=== PATIENT | female | born 1995 | race Two or more races ===

== ENCOUNTER 2023-01-08 10:02 | Inpatient (IN) | payer MEDICAID ==
[~2023-01-08] VITALS: Ht 170.2 cm; Wt 64.8 kg
[2023-01-08] MEDS ORDERED: diphenhdrAMINE HCL 50 MG/1 ML VL IV ONE ×2 (10:30→14:00)
[2023-01-08] MEDS ORDERED: SODIUM CHLORIDE 0.9% 2,000 ML IV ONE (10:30)
[2023-01-08] MEDS ORDERED: LORazepam 2MG/ML-1ML VIAL IV ONE (10:30)
[2023-01-08 11:52] LABS: Albumin 3.7 g/dL (3.4-5.0); Calcium 9.1 mg/dL (8.5-10.1); Magnesium 1.9 mg/dL (1.6-2.6); Potassium 3.5 mmol/L (3.5-5.1)
[2023-01-08 11:55] LABS: Lactic Acid w/Reflex 2.2 mmol/L (0.4-2.0)
[2023-01-08 11:57] LABS: BUN/Creatinine Ratio 14.1 (10.0-20.0); Bilirubin, Total 0.5 mg/dL (0.2-1.0); Total Protein 7.6 g/dL (6.4-8.2)
[2023-01-08] MEDS ORDERED: HYDROmorphone HCL 2 MG/ML VL/or syr IV ONE (12:00)
[2023-01-08] MEDS ORDERED: METOCLOPRAMIDE HCL 5MG/ml INJ 2ml VIAL IV ONE (12:00)
[2023-01-08 12:03] LABS: INR 0.97 (0.9-1.15); Partial Thromboplastin Time 24.5 sec (24.6-33.4)
[2023-01-08 12:04] LABS: Basophils # (auto) 0 10 ^3/uL (0-0.2); Basophils % (auto) 0.4 % (0.0-2.0); Eosinophils # (auto) 0 10 ^3/uL (0-0.8); Eosinophils % (auto) 0.1 % (0.0-7.0); Hematocrit 35.2 % (36.0-46.0); Hemoglobin 12.2 g/dL (12.2-16.2); Lymphocytes # (auto) 1.8 10 ^3/uL (0.4-5.4); Lymphocytes % (auto) 27.7 % (10.0-50.0); Mean Corpuscular Hemoglobin 27.5 pg (28.0-32.0); Mean Corpuscular Hgb Conc. 34.7 g/dL (32.0-36.0); Mean Corpuscular Volume 79.4 fL (80.0-100.0); Monocytes # (auto) 0.4 10 ^3/uL (0-1.3); Monocytes % (auto) 6.3 % (0.0-12.0); Neutrophils # (auto) 4.4 10 ^3/uL (1.6-8.6); Neutrophils % (auto) 65.5 % (37.0-80.0); Nucleated Red Blood Cells % 0.1 %; Red Blood Cells 4.44 10^6/uL (4.0-5.20); Red Cell Distribution Width 13.7 % (11.8-14.3); White Blood Cell 6.6 10^3/uL (4.4-10.8)
[2023-01-08] MEDS ORDERED: PROMETHAZINE HCL 25 MG/ML 1ML IV ONE (14:00)
[2023-01-08] MEDS ORDERED: InsuLIN REG 1unit/0.01ml Soln (100units/ml) IV ONE (14:00)
[2023-01-08] MEDS ORDERED: DEXTROSE (50%) 50ML SYRG IV PRN (14:15)
[2023-01-08] MEDS: SODIUM CHLORIDE 0.9% 1,000 ML IV SCH ×2 (14:15→18:38)
[2023-01-08] MEDS ORDERED: OXYC-998 PO (14:27)
[2023-01-08] MEDS ORDERED: METH-1181 PO (14:27)
[2023-01-08] MEDS ORDERED: QUET200T45 PO (14:27)
[2023-01-08] MEDS ORDERED: ONDA-188 (14:27)
[2023-01-08] MEDS ORDERED: DULO1CAP5 PO (14:27)
[2023-01-08] MEDS ORDERED: INSU100I51 SC (14:27)
[2023-01-08] MEDS ORDERED: RIV15T PO (14:27)
[2023-01-08] MEDS ORDERED: CEFA10IN (14:27)
[2023-01-08] MEDS ORDERED: QUET100T47 PO (14:27)
[2023-01-08] MEDS ORDERED: HYDR-3682 PO (14:27)
[2023-01-08] MEDS ORDERED: INSU1INJ19 SC (14:27)
[2023-01-08] MEDS ORDERED: PANT40T PO (14:27)
[2023-01-08] MEDS ORDERED: GABA-1250 PO (14:27)
[2023-01-08 16:23] LABS: Lactic Acid w/Reflex 2.7 mmol/L (0.4-2.0)
[2023-01-08] MEDS: METOCLOPRAMIDE HCL 5MG/ml INJ 2ml VIAL IV PRN (16:34)
[2023-01-08] MEDS: diphenhdrAMINE HCL 50 MG/1 ML VL IV PRN ×2 (16:56→22:48)
[2023-01-08] MEDS: HYDROmorphone HCL 2 MG/ML VL/or syr IV PRN ×2 (16:57→20:57)
[2023-01-08] MEDS: ACCU-CHEK COMFORT CURVE STRIP VI SCH ×2 (17:00→22:35)
[2023-01-08] MEDS: InsuLIN REG 1unit/0.01ml Soln (100units/ml) SC SCH ×2 (18:14→22:36)
[2023-01-08] MEDS ORDERED: SODIUM CHLORIDE 0.9% 1,000 ML IV ONE (18:15)
[2023-01-08] MEDS: RIVAROXABAN 15 MG TAB PO SCH (22:40)
[2023-01-08] MEDS: DULoxetine HCL 30 MG CAP PO SCH (22:40)
[2023-01-08] MEDS: GABAPENTIN 300 MG CAP PO SCH (22:40)
[2023-01-08 23:55] LABS: Urine Bacteria FEW /hpf (None Seen); Urine Blood Negative /uL (Negative); Urine Mucus FEW (None Seen); Urine Specific Gravity 1.032 (1.001-1.035); Urine WBC 3 /hpf (0 - 5)
[2023-01-09] MEDS: HYDROmorphone HCL 2 MG/ML VL/or syr IV PRN ×5 (01:18→19:45)
[2023-01-09] MEDS: diphenhdrAMINE HCL 50 MG/1 ML VL IV PRN ×4 (02:45→22:47)
[2023-01-09] MEDS: GABAPENTIN 300 MG CAP PO SCH ×3 (06:00→22:03)
[2023-01-09] MEDS: ACCU-CHEK COMFORT CURVE STRIP VI SCH ×4 (06:35→22:03)
[2023-01-09] MEDS: SODIUM CHLORIDE 0.9% 1,000 ML IV SCH ×3 (06:35→23:35)
[2023-01-09] MEDS: InsuLIN REG 1unit/0.01ml Soln (100units/ml) SC SCH ×4 (06:36→22:00)
[2023-01-09] MEDS: METOCLOPRAMIDE HCL 5MG/ml INJ 2ml VIAL IV PRN (07:34)
[2023-01-09 07:43] LABS: Basophils # (auto) 0 10 ^3/uL (0-0.2); Basophils % (auto) 0.4 % (0.0-2.0); Eosinophils # (auto) 0 10 ^3/uL (0-0.8); Eosinophils % (auto) 0.6 % (0.0-7.0); Hematocrit 33.2 % (36.0-46.0); Hemoglobin 11.3 g/dL (12.2-16.2); Lymphocytes # (auto) 2.6 10 ^3/uL (0.4-5.4); Lymphocytes % (auto) 33.2 % (10.0-50.0); Mean Corpuscular Hemoglobin 27.5 pg (28.0-32.0); Mean Corpuscular Hgb Conc. 33.9 g/dL (32.0-36.0); Mean Corpuscular Volume 81.3 fL (80.0-100.0); Monocytes # (auto) 0.6 10 ^3/uL (0-1.3); Monocytes % (auto) 7.8 % (0.0-12.0); Neutrophils # (auto) 4.6 10 ^3/uL (1.6-8.6); Nucleated Red Blood Cells % 0.2 %; Red Blood Cells 4.09 10^6/uL (4.0-5.20); Red Cell Distribution Width 13.6 % (11.8-14.3); White Blood Cell 7.9 10^3/uL (4.4-10.8)
[2023-01-09 07:58] LABS: Calcium 8.4 mg/dL (8.5-10.1); Potassium 3.4 mmol/L (3.5-5.1)
[2023-01-09 08:03] LABS: Albumin 3.2 g/dL (3.4-5.0); BUN/Creatinine Ratio 12.1 (10.0-20.0); Bilirubin, Total 0.4 mg/dL (0.2-1.0); Total Protein 6.7 g/dL (6.4-8.2)
[2023-01-09] MEDS: QUEtiapine FUMARATE 100 MG TAB PO SCH (10:43)
[2023-01-09] MEDS: DULoxetine HCL 30 MG CAP PO SCH ×2 (10:43→22:02)
[2023-01-09] MEDS: RIVAROXABAN 15 MG TAB PO SCH ×2 (10:43→22:03)
[2023-01-10 04:11] VITALS: BP 166/103
[2023-01-10] MEDS: HYDROmorphone HCL 2 MG/ML VL/or syr IV PRN ×2 (04:28→09:36)
[2023-01-10] MEDS: METOCLOPRAMIDE HCL 5MG/ml INJ 2ml VIAL IV PRN ×3 (04:34→19:59)
[2023-01-10] MEDS ORDERED: INSU100I4 SC (04:40)
[2023-01-10] MEDS ORDERED: INSLANTI SC (04:40)
[2023-01-10] MEDS: SODIUM CHLORIDE 0.9% 1,000 ML IV SCH ×2 (05:02→12:23)
[2023-01-10] MEDS: diphenhdrAMINE HCL 50 MG/1 ML VL IV PRN (05:34)
[2023-01-10] MEDS: GABAPENTIN 300 MG CAP PO SCH ×3 (05:35→21:46)
[2023-01-10] MEDS: ACCU-CHEK COMFORT CURVE STRIP VI SCH ×4 (06:05→21:59)
[2023-01-10] MEDS: InsuLIN REG 1unit/0.01ml Soln (100units/ml) SC SCH ×4 (06:08→22:02)
[2023-01-10 09:00] VITALS: BP 108/6
[2023-01-10] MEDS: RIVAROXABAN 15 MG TAB PO SCH (09:19)
[2023-01-10] MEDS: DULoxetine HCL 30 MG CAP PO SCH ×2 (09:22→21:46)
[2023-01-10] MEDS: QUEtiapine FUMARATE 100 MG TAB PO SCH (09:22)
[2023-01-10] MEDS ORDERED: ACETAMINOPHEN 500 MG TAB PO PRN (12:45)
[2023-01-10 13:00] VITALS: BP 103/68
[2023-01-10 14:29] LABS: Hepatitis C Antibody Negative (Negative)
[2023-01-10 17:00] VITALS: BP 122/71
[2023-01-10] MEDS: RIVAROXABAN 20 MG TAB PO SCH (18:00)
[2023-01-10 21:40] VITALS: BP 127/58
[2023-01-10] MEDS ORDERED: POTASSIUM EFFERVESENT TAB 25 MEQ GT ONE (22:00)
[2023-01-10] MEDS ORDERED: POTASSIUM EFFERVESENT TAB 25 MEQ PO ONE (23:00)
[2023-01-10] MEDS ORDERED: diphenhdrAMINE HCL 25 MG CAP PO ONE (23:00)
[2023-01-11] MEDS: SODIUM CHLORIDE 0.9% 1,000 ML IV SCH ×3 (00:35→18:08)
[2023-01-11 04:50] VITALS: BP 123/76
[2023-01-11] MEDS: GABAPENTIN 300 MG CAP PO SCH ×3 (05:18→22:34)
[2023-01-11] MEDS: ACCU-CHEK COMFORT CURVE STRIP VI SCH ×4 (06:23→21:50)
[2023-01-11] MEDS: InsuLIN REG 1unit/0.01ml Soln (100units/ml) SC SCH ×4 (06:25→22:02)
[2023-01-11] MEDS: METOCLOPRAMIDE HCL 5MG/ml INJ 2ml VIAL IV PRN ×2 (08:22→21:47)
[2023-01-11 08:49] LABS: Basophils # (auto) 0 10 ^3/uL (0-0.2); Basophils % (auto) 0.4 % (0.0-2.0); Eosinophils # (auto) 0 10 ^3/uL (0-0.8); Eosinophils % (auto) 0.4 % (0.0-7.0); Hematocrit 33.4 % (36.0-46.0); Hemoglobin 11.3 g/dL (12.2-16.2); Lymphocytes # (auto) 1.8 10 ^3/uL (0.4-5.4); Lymphocytes % (auto) 29.3 % (10.0-50.0); Mean Corpuscular Hemoglobin 27.1 pg (28.0-32.0); Mean Corpuscular Hgb Conc. 33.8 g/dL (32.0-36.0); Mean Corpuscular Volume 80.1 fL (80.0-100.0); Monocytes # (auto) 0.5 10 ^3/uL (0-1.3); Monocytes % (auto) 8.8 % (0.0-12.0); Neutrophils # (auto) 3.7 10 ^3/uL (1.6-8.6); Neutrophils % (auto) 61.1 % (37.0-80.0); Nucleated Red Blood Cells % 0.1 %; Red Blood Cells 4.17 10^6/uL (4.0-5.20); Red Cell Distribution Width 13.9 % (11.8-14.3)
[2023-01-11 09:00] VITALS: BP 118/75
[2023-01-11 09:40] LABS: Potassium 3.8 mmol/L (3.5-5.1)
[2023-01-11 09:44] LABS: BUN/Creatinine Ratio 10.7 (10.0-20.0)
[2023-01-11] MEDS: QUEtiapine FUMARATE 100 MG TAB PO SCH ×2 (10:00→13:11)
[2023-01-11] MEDS: DULoxetine HCL 30 MG CAP PO SCH ×2 (10:00→13:11)
[2023-01-11 13:00] VITALS: BP 121/74
[2023-01-11] MEDS: traMADol HCL 50 MG TAB PO PRN (13:08)
[2023-01-11] MEDS: diphenhdrAMINE HCL 50 MG/1 ML VL IV PRN ×3 (13:12→22:03)
[2023-01-11 17:00] VITALS: BP 100/60
[2023-01-11] MEDS: RIVAROXABAN 20 MG TAB PO SCH (18:00)
[2023-01-11 22:00] VITALS: BP 152/98
[2023-01-11] MEDS ORDERED: DULoxetine HCL 30 MG CAP PO ONE (22:15)
[2023-01-12] MEDS: SODIUM CHLORIDE 0.9% 1,000 ML IV SCH ×2 (01:23→09:12)
[2023-01-12] MEDS: traMADol HCL 50 MG TAB PO PRN ×2 (01:23→09:12)
[2023-01-12] MEDS: diphenhdrAMINE HCL 50 MG/1 ML VL IV PRN ×2 (02:07→06:22)
[2023-01-12 05:00] VITALS: BP 144/100
[2023-01-12] MEDS ORDERED: LORazepam 0.5 MG TAB PO ONE (05:45)
[2023-01-12] MEDS: GABAPENTIN 300 MG CAP PO SCH (06:00)
[2023-01-12] MEDS: ACCU-CHEK COMFORT CURVE STRIP VI SCH (06:06)
[2023-01-12] MEDS: InsuLIN REG 1unit/0.01ml Soln (100units/ml) SC SCH (06:18)
[2023-01-12] MEDS: METOCLOPRAMIDE HCL 5MG/ml INJ 2ml VIAL IV PRN (06:22)
[2023-01-12 06:41] LABS: Basophils # (auto) 0 10 ^3/uL (0-0.2); Basophils % (auto) 0.1 % (0.0-2.0); Eosinophils # (auto) 0 10 ^3/uL (0-0.8); Hematocrit 34.6 % (36.0-46.0); Hemoglobin 11.6 g/dL (12.2-16.2); Lymphocytes # (auto) 1.2 10 ^3/uL (0.4-5.4); Lymphocytes % (auto) 10.2 % (10.0-50.0); Mean Corpuscular Hemoglobin 27.2 pg (28.0-32.0); Mean Corpuscular Hgb Conc. 33.7 g/dL (32.0-36.0); Mean Corpuscular Volume 80.8 fL (80.0-100.0); Monocytes # (auto) 0.4 10 ^3/uL (0-1.3); Monocytes % (auto) 3.7 % (0.0-12.0); Neutrophils # (auto) 9.8 10 ^3/uL (1.6-8.6); Red Blood Cells 4.28 10^6/uL (4.0-5.20); Red Cell Distribution Width 13.7 % (11.8-14.3); White Blood Cell 11.4 10^3/uL (4.4-10.8)
[2023-01-12 06:46] LABS: BUN/Creatinine Ratio 9.8 (10.0-20.0); Calcium 8.9 mg/dL (8.5-10.1); Potassium 3.4 mmol/L (3.5-5.1)
[2023-01-12 09:00] VITALS: BP 141/62
[2023-01-12] MEDS: QUEtiapine FUMARATE 100 MG TAB PO SCH (09:13)
[2023-01-12] MEDS ORDERED: ONDA-188 PO (10:43)
== END 2023-01-12 14:01 | disposition home or self-care (01) | DRG 420 ==
LOC: EDBD 10:02 → ER 10:02 → OVERFLOW 14:18 → WEST WING 01-10 04:20
PROVIDERS: ADMIT Nurse Practitioner Family; ATTEND Internal Medicine Pulmonary Disease
DX: E10.10 Type 1 diabetes mellitus with ketoacidosis without coma (principal); E10.43 Type 1 diabetes mellitus with diabetic autonomic (poly)neuropathy; K31.84 Gastroparesis; Z91.199 Patient's noncompliance with other medical treatment and regimen due to unspecified reason; Z91.018 Allergy to other foods; Z95.0 Presence of cardiac pacemaker; Z83.3 Family history of diabetes mellitus
CPT/HCPCS: 36415; 36600; 74176; 80048; 80053; 81001; 82010; 82805; 82962; 83036; 83605; 83690; 83735; 84443; 84484; 84702; 85025; 85610; 85730; 86803; 87040; 87077; 87186; 87340; 96374; 96375; G0378; J1815

== ENCOUNTER 2023-02-28 19:30 | Inpatient (IN) | payer MEDICAID ==
[~2023-02-28] VITALS: Ht 170.2 cm; Wt 63.0 kg
[~2023-02-28 19:30] MED LIST: CEFA10IN; DULO1CAP5 PO; GABA-1250 PO; HYDR-3682 PO; INSLANTI SC; INSU100I4 SC; INSU100I51 SC; INSU1INJ19 SC; METH-1181 PO; ONDA-188 PO; OXYC-998 PO; PANT40T PO; QUET100T47 PO; QUET200T45 PO; RIV15T PO
[2023-02-28 20:07] LABS: Urine Bacteria NONE SEEN /hpf (None Seen); Urine Blood Negative /uL (Negative); Urine Specific Gravity 1.031 (1.001-1.035); Urine WBC 1 /hpf (0 - 5)
[2023-02-28] MEDS ORDERED: ONDANSETRON HCL 4 MG/2 ML VIAL IV ONE (20:15)
[2023-02-28] MEDS ORDERED: SODIUM CHLORIDE 0.9% 2,000 ML IV ONE ×2 (20:15→21:45)
[2023-02-28 20:18] LABS: Basophils # (auto) 0 10 ^3/uL (0-0.2); Basophils % (auto) 0.1 % (0.0-2.0); Eosinophils # (auto) 0 10 ^3/uL (0-0.8); Hematocrit 38.8 % (36.0-46.0); Hemoglobin 12.7 g/dL (12.2-16.2); Lymphocytes # (auto) 0.8 10 ^3/uL (0.4-5.4); Lymphocytes % (auto) 5.6 % (10.0-50.0); Mean Corpuscular Hemoglobin 26.7 pg (28.0-32.0); Mean Corpuscular Hgb Conc. 32.7 g/dL (32.0-36.0); Mean Corpuscular Volume 81.5 fL (80.0-100.0); Monocytes # (auto) 0.4 10 ^3/uL (0-1.3); Monocytes % (auto) 2.6 % (0.0-12.0); Neutrophils # (auto) 13.3 10 ^3/uL (1.6-8.6); Neutrophils % (auto) 91.7 % (37.0-80.0); Nucleated Red Blood Cells % 0.1 %; Red Blood Cells 4.75 10^6/uL (4.0-5.20); Red Cell Distribution Width 14.7 % (11.8-14.3); White Blood Cell 14.5 10^3/uL (4.4-10.8)
[2023-02-28 20:22] LABS: Albumin 4.1 g/dL (3.4-5.0); Calcium 9.5 mg/dL (8.5-10.1)
[2023-02-28 20:26] LABS: BUN/Creatinine Ratio 13.4 (10.0-20.0); Bilirubin, Total 0.5 mg/dL (0.2-1.0); Total Protein 8.4 g/dL (6.4-8.2)
[2023-02-28] MEDS ORDERED: diphenhdrAMINE HCL 50 MG/1 ML VL IV ONE (20:30)
[2023-02-28] MEDS ORDERED: InsuLIN REG 1unit/0.01ml Soln (100units/ml) IV ONE (20:30)
[2023-02-28 20:35] LABS: Lactic Acid w/Reflex 5.7 mmol/L (0.4-2.0)
[2023-02-28 20:36] LABS: Alcohol, Urine < 3.0 mg/dL (0-10); Amphetamine Screen, Urine NEGATIVE (NEGATIVE); Barbiturate Scree,Urine NEGATIVE (NEGATIVE); Benzodiazephine Screen, Urine NEGATIVE (NEGATIVE); Cannabinoid Screen, Urine POSITIVE (NEGATIVE); Cocaine Screen, Urine NEGATIVE (NEGATIVE)
[2023-02-28 20:44] LABS: Opiate Scree,Urine NEGATIVE (NEGATIVE); Phencyclidine Screen, Urine NEGATIVE (NEGATIVE)
[2023-02-28] MEDS ORDERED: levoFLOXacin 500MG 100 ML IV ONE (21:45)
[2023-02-28 22:40] LABS: INR 0.94 (0.9-1.15); Partial Thromboplastin Time 24.4 SEC (24.5-34.5)
[2023-03-01] MEDS ORDERED: ONDANSETRON HCL 4 MG/2 ML VIAL IV ONE (00:30)
[2023-03-01] MEDS ORDERED: VANCOMYCIN 1GM/250ML 250 ML IV ONE (00:30)
[2023-03-01] MEDS ORDERED: HYDROmorphone HCL 2 MG/ML VL/or syr IV ONE ×2 (00:30→10:00)
[2023-03-01] MEDS ORDERED: METOCLOPRAMIDE HCL 5MG/ml INJ 2ml VIAL IV ONE ×3 (03:45→06:45)
[2023-03-01 04:29] LABS: BUN/Creatinine Ratio 14.9 (10.0-20.0); Calcium 8.2 mg/dL (8.5-10.1)
[2023-03-01] MEDS ORDERED: NITROGLYCERIN 0.4 MG SL TAB SL PRN (05:45)
[2023-03-01] MEDS ORDERED: TEMAZEPAM 15 MG CAP PO PRN (05:45)
[2023-03-01] MEDS ORDERED: MORPHINE SULFATE INJ 2 MG/ml SYRG IV PRN (05:45)
[2023-03-01] MEDS ORDERED: DEXTROSE (50%) 50ML SYRG IV PRN (05:45)
[2023-03-01] MEDS ORDERED: ACETAMINOPHEN 325 MG TAB PO PRN (05:45)
[2023-03-01 07:28] LABS: Lactic Acid w/Reflex 2.6 mmol/L (0.4-2.0)
[2023-03-01 07:35] LABS: Eosinophils # (auto) 0 10 ^3/uL (0-0.8); Hemoglobin 12.6 g/dL (12.2-16.2); White Blood Cell 18.4 10^3/uL (4.4-10.8)
[2023-03-01 07:38] LABS: Basophils # (auto) 0.2 10 ^3/uL (0-0.2); Basophils % (auto) 0.9 % (0.0-2.0); Hematocrit 38.5 % (36.0-46.0); Lymphocytes # (auto) 1.9 10 ^3/uL (0.4-5.4); Lymphocytes % (auto) 10.2 % (10.0-50.0); Mean Corpuscular Hemoglobin 26.7 pg (28.0-32.0); Mean Corpuscular Hgb Conc. 32.7 g/dL (32.0-36.0); Mean Corpuscular Volume 81.8 fL (80.0-100.0); Monocytes % (auto) 5.3 % (0.0-12.0); Neutrophils # (auto) 15.3 10 ^3/uL (1.6-8.6); Neutrophils % (auto) 83.6 % (37.0-80.0); Nucleated Red Blood Cells % 0.1 %; Red Blood Cells 4.71 10^6/uL (4.0-5.20); Red Cell Distribution Width 15.1 % (11.8-14.3)
[2023-03-01] MEDS: InsuLIN REG 1unit/0.01ml Soln (100units/ml) SC SCH ×4 (08:47→20:00)
[2023-03-01] MEDS: ACCU-CHEK COMFORT CURVE STRIP VI SCH ×4 (08:48→20:03)
[2023-03-01] MEDS ORDERED: PANTOPRAZOLE 40 MG TAB PO SCH (10:00)
[2023-03-01] MEDS: ONDANSETRON HCL 4 MG/2 ML VIAL IV PRN ×2 (10:00→16:30)
[2023-03-01] MEDS: RIVAROXABAN 15 MG TAB PO SCH (10:00)
[2023-03-01] MEDS: METOCLOPRAMIDE HCL 5MG/ml INJ 2ml VIAL IV SCH ×2 (14:07→21:48)
[2023-03-01] MEDS ORDERED: cefTRIAXone 1GM/50ML D5W 50 ML IV ONE (15:00)
[2023-03-01] MEDS: SODIUM CHLORIDE 0.9% 1,000 ML IV SCH ×2 (15:04→23:31)
[2023-03-01] MEDS: HYDROcodone-ACET 5/325MG TAB PO PRN (19:54)
[2023-03-01] MEDS: diphenhdrAMINE HCL 25 MG CAP PO PRN (19:54)
[2023-03-01] MEDS ORDERED: levoFLOXacin 500MG 100 ML IV SCH (21:00)
[2023-03-01] MEDS: QUEtiapine FUMARATE 100 MG TAB PO SCH (21:48)
[2023-03-02] MEDS: ACCU-CHEK COMFORT CURVE STRIP VI SCH ×7 (00:22→23:30)
[2023-03-02] MEDS: InsuLIN REG 1unit/0.01ml Soln (100units/ml) SC SCH ×7 (00:26→23:29)
[2023-03-02] MEDS: diphenhdrAMINE HCL 25 MG CAP PO PRN ×2 (04:33→13:14)
[2023-03-02] MEDS: ONDANSETRON HCL 4 MG/2 ML VIAL IV PRN ×2 (04:33→17:57)
[2023-03-02] MEDS: HYDROcodone-ACET 5/325MG TAB PO PRN ×4 (04:33→23:16)
[2023-03-02 06:08] LABS: Basophils # (auto) 0 10 ^3/uL (0-0.2); Basophils % (auto) 0.2 % (0.0-2.0); Eosinophils # (auto) 0.1 10 ^3/uL (0-0.8); Eosinophils % (auto) 0.7 % (0.0-7.0); Hemoglobin 11.4 g/dL (12.2-16.2); Lymphocytes % (auto) 9.8 % (10.0-50.0); Mean Corpuscular Hemoglobin 27.2 pg (28.0-32.0); Mean Corpuscular Hgb Conc. 33.4 g/dL (32.0-36.0); Mean Corpuscular Volume 81.4 fL (80.0-100.0); Monocytes # (auto) 0.7 10 ^3/uL (0-1.3); Monocytes % (auto) 6.7 % (0.0-12.0); Neutrophils # (auto) 8.1 10 ^3/uL (1.6-8.6); Neutrophils % (auto) 82.6 % (37.0-80.0); Nucleated Red Blood Cells % 0.1 %; Red Blood Cells 4.18 10^6/uL (4.0-5.20); Red Cell Distribution Width 14.6 % (11.8-14.3); White Blood Cell 9.8 10^3/uL (4.4-10.8)
[2023-03-02 06:14] LABS: Albumin 3.2 g/dL (3.4-5.0); Calcium 8.3 mg/dL (8.5-10.1)
[2023-03-02 06:17] LABS: Bilirubin, Total 0.5 mg/dL (0.2-1.0); Total Protein 6.9 g/dL (6.4-8.2)
[2023-03-02] MEDS: METOCLOPRAMIDE HCL 5MG/ml INJ 2ml VIAL IV SCH ×3 (06:30→22:22)
[2023-03-02 06:38] LABS: Potassium 2.9 mmol/L (3.5-5.1)
[2023-03-02] MEDS ORDERED: POTASSIUM EFFERVESENT TAB 25 MEQ PO ONE (07:00)
[2023-03-02] MEDS: SODIUM CHLORIDE 0.9% 1,000 ML IV SCH (07:03)
[2023-03-02] MEDS: SOD CHL 0.9%/ KCL 40MEQ 1,000 ML IV SCH ×2 (08:17→18:03)
[2023-03-02] MEDS: cefTRIAXone 1GM/50ML D5W 50 ML IV SCH (08:59)
[2023-03-02] MEDS: RIVAROXABAN 15 MG TAB PO SCH (09:34)
[2023-03-02 13:18] LABS: BUN/Creatinine Ratio 10.7 (10.0-20.0); Calcium 8.5 mg/dL (8.5-10.1); Potassium 3.6 mmol/L (3.5-5.1)
[2023-03-02 17:15] VITALS: BP_SYST 126; BP_SYST 158; BP_DIAS 88
[2023-03-02] MEDS ORDERED: MICAFUNGIN SODIUM 100 MG in SODIUM CHL 0.9% 100 ML IV ONE (17:15)
[2023-03-02 17:49] VITALS: BP 126/88
[2023-03-02] MEDS ORDERED: DICYCLOMINE HCL (10MG/ML) 2 ML AMPULE IM ONE (18:45)
[2023-03-02] MEDS ORDERED: SODIUM CHLORIDE 0.9% 1,000 ML IV ONE (18:45)
[2023-03-02] MEDS ORDERED: METOCLOPRAMIDE HCL 5MG/ml INJ 2ml VIAL IV PRN (18:45)
[2023-03-02] MEDS: diphenhdrAMINE HCL 50 MG/1 ML VL IV PRN (20:08)
[2023-03-02 22:00] VITALS: BP 111/65
[2023-03-02] MEDS: QUEtiapine FUMARATE 100 MG TAB PO SCH (22:23)
[2023-03-03] MEDS: HYDROcodone-ACET 5/325MG TAB PO PRN ×3 (03:10→15:50)
[2023-03-03] MEDS: diphenhdrAMINE HCL 50 MG/1 ML VL IV PRN ×2 (03:10→09:50)
[2023-03-03] MEDS: ACCU-CHEK COMFORT CURVE STRIP VI SCH ×4 (03:11→15:52)
[2023-03-03] MEDS: InsuLIN REG 1unit/0.01ml Soln (100units/ml) SC SCH ×4 (03:18→15:54)
[2023-03-03 05:00] VITALS: BP 131/78
[2023-03-03] MEDS: METOCLOPRAMIDE HCL 5MG/ml INJ 2ml VIAL IV SCH ×2 (05:50→13:45)
[2023-03-03] MEDS: SOD CHL 0.9%/ KCL 40MEQ 1,000 ML IV SCH ×2 (05:50→13:44)
[2023-03-03 06:52] LABS: Calcium 7.9 mg/dL (8.5-10.1); Potassium 3.3 mmol/L (3.5-5.1)
[2023-03-03 06:56] LABS: BUN/Creatinine Ratio 11.1 (10.0-20.0); Magnesium 2.2 mg/dL (1.6-2.6)
[2023-03-03 06:59] LABS: Bilirubin, Total 0.4 mg/dL (0.2-1.0); Total Protein 6.6 g/dL (6.4-8.2)
[2023-03-03 07:03] LABS: Basophils # (auto) 0 10 ^3/uL (0-0.2); Basophils % (auto) 0.3 % (0.0-2.0); Eosinophils # (auto) 0 10 ^3/uL (0-0.8); Eosinophils % (auto) 0.5 % (0.0-7.0); Hematocrit 34.4 % (36.0-46.0); Hemoglobin 11.4 g/dL (12.2-16.2); Lymphocytes # (auto) 1.2 10 ^3/uL (0.4-5.4); Lymphocytes % (auto) 15.9 % (10.0-50.0); Mean Corpuscular Hemoglobin 27.5 pg (28.0-32.0); Mean Corpuscular Hgb Conc. 33.2 g/dL (32.0-36.0); Mean Corpuscular Volume 82.9 fL (80.0-100.0); Monocytes # (auto) 0.6 10 ^3/uL (0-1.3); Monocytes % (auto) 8.3 % (0.0-12.0); Neutrophils # (auto) 5.6 10 ^3/uL (1.6-8.6); Red Blood Cells 4.15 10^6/uL (4.0-5.20); Red Cell Distribution Width 14.9 % (11.8-14.3); White Blood Cell 7.4 10^3/uL (4.4-10.8)
[2023-03-03 08:00] VITALS: BP 131/78
[2023-03-03] MEDS: cefTRIAXone 1GM/50ML D5W 50 ML IV SCH (08:44)
[2023-03-03] MEDS: RIVAROXABAN 15 MG TAB PO SCH (08:44)
[2023-03-03 09:00] VITALS: BP 153/98
[2023-03-03] MEDS ORDERED: MICAFUNGIN SODIUM 100 MG in SODIUM CHL 0.9% 100 ML IV SCH (10:00)
[2023-03-03 15:24] VITALS: BP 131/78
[2023-03-03 17:00] VITALS: BP 150/100
== END 2023-03-03 18:05 | disposition left against medical advice (07) | DRG 720 ==
LOC: EDBD 19:30 → ER 19:30 → TELE 03-01 05:42 → TELE-WESTW 03-02 16:46
PROVIDERS: ADMIT Internal Medicine; ATTEND Internal Medicine
DX: A41.9 Sepsis, unspecified organism (principal); E10.10 Type 1 diabetes mellitus with ketoacidosis without coma; E10.43 Type 1 diabetes mellitus with diabetic autonomic (poly)neuropathy; B49 Unspecified mycosis; K31.84 Gastroparesis; E86.0 Dehydration; F12.90 Cannabis use, unspecified, uncomplicated; Z20.822 Contact with and (suspected) exposure to COVID-19; G89.29 Other chronic pain; F11.10 Opioid abuse, uncomplicated; F19.10 Other psychoactive substance abuse, uncomplicated; N39.0 Urinary tract infection, site not specified; Z53.29 Procedure and treatment not carried out because of patient's decision for other reasons; Z83.3 Family history of diabetes mellitus; Z86.718 Personal history of other venous thrombosis and embolism; Z79.01 Long term (current) use of anticoagulants
CPT/HCPCS: 36415; 36600; 71046; 74176; 76705; 80048; 80053; 80307; 81001; 82010; 82805; 82962; 83036; 83605; 83690; 83735; 84100; 84443; 84702; 85025; 85610; 85730; 87040; 87426; 99291; G0378; J0696; J1815; J1956; J2248; J2405

== ENCOUNTER 2023-03-23 10:59 | Inpatient (IN) | payer MEDICAID ==
[~2023-03-23] VITALS: Ht 167.6 cm; Wt 58.3 kg
[2023-03-23 12:09] LABS: Calcium 8.9 mg/dL (8.5-10.1); Potassium 3.7 mmol/L (3.5-5.1)
[2023-03-23 12:10] LABS: BUN/Creatinine Ratio 14.1 (10.0-20.0)
[2023-03-23 12:19] LABS: Basophils # (auto) 0 10 ^3/uL (0-0.2); Basophils % (auto) 0.1 % (0.0-2.0); Eosinophils # (auto) 0 10 ^3/uL (0-0.8); Nucleated Red Blood Cells % 0.1 %
[2023-03-23 12:23] LABS: Hematocrit 38.2 % (36.0-46.0); Hemoglobin 12.6 g/dL (12.2-16.2); Lymphocytes % (auto) 11.3 % (10.0-50.0); Mean Corpuscular Hemoglobin 27.1 pg (28.0-32.0); Mean Corpuscular Hgb Conc. 33.1 g/dL (32.0-36.0); Monocytes # (auto) 0.5 10 ^3/uL (0-1.3); Monocytes % (auto) 5.5 % (0.0-12.0); Neutrophils # (auto) 7.5 10 ^3/uL (1.6-8.6); Neutrophils % (auto) 83.1 % (37.0-80.0); Red Blood Cells 4.66 10^6/uL (4.0-5.20); Red Cell Distribution Width 14.5 % (11.8-14.3); White Blood Cell 9.1 10^3/uL (4.4-10.8)
[2023-03-23] MEDS ORDERED: diphenhdrAMINE HCL 50 MG/1 ML VL IV ONE ×2 (12:30→16:15)
[2023-03-23] MEDS ORDERED: SODIUM CHLORIDE 0.9% 1,000 ML IVB ONE ×2 (12:30→15:15)
[2023-03-23] MEDS ORDERED: HYDROmorphone HCL 2 MG/ML VL/or syr IV ONE ×2 (12:30→16:15)
[2023-03-23] MEDS ORDERED: InsuLIN REG 1unit/0.01ml Soln (100units/ml) IV ONE (12:45)
[2023-03-23 12:56] LABS: Albumin 3.9 g/dL (3.4-5.0); Bilirubin, Direct 0.2 mg/dL (0-0.2); Magnesium 1.9 mg/dL (1.6-2.6)
[2023-03-23 12:59] LABS: Bilirubin, Total 0.7 mg/dL (0.2-1.0); Total Protein 7.9 g/dL (6.4-8.2)
[2023-03-23 13:01] LABS: Urine Bacteria NONE SEEN /hpf (None Seen); Urine Blood Negative /uL (Negative); Urine Clarity Clear (Clear); Urine Color Colorless (Yellow); Urine Protein, UAD TRACE (Negative); Urine Urobilinogen Normal (Negative); Urine WBC 2 /hpf (0 - 5); Urine pH 5.5 (5.0-8.0)
[2023-03-23 15:15] VITALS: RESP 18; O2SAT 100
[2023-03-23 16:08] LABS: Calcium 8.5 mg/dL (8.5-10.1); Potassium 3.7 mmol/L (3.5-5.1)
[2023-03-23 16:10] LABS: BUN/Creatinine Ratio 20.8 (10.0-20.0)
[2023-03-23] MEDS ORDERED: InsuLIN R (HUMAN) 100 UNITS in SODIUM CHL 0.9% 99 ML IV SCH (16:45)
[2023-03-23] MEDS ORDERED: INSULIN LANTUS (GLARGINE) 1 /0.01ml (100units/ml) SC ONE (16:45)
[2023-03-23] MEDS ORDERED: DEXTROSE (50%) 50ML SYRG IV PRN (16:45)
[2023-03-23 17:03] LABS: Base Excess -13.7 mmol/L (-2.0-2.0)
[2023-03-23] MEDS ORDERED: POTASSIUM CHLORIDE 20 MEQ in D5W 5% 1,000 ML IV SCH (17:15)
[2023-03-23] MEDS: SODIUM CHLORIDE 0.9% 1,000 ML IV SCH ×2 (17:20→22:05)
[2023-03-23 17:46] LABS: Basophils # (auto) 0 10 ^3/uL (0-0.2); Eosinophils # (auto) 0 10 ^3/uL (0-0.8); Lymphocytes # (auto) 1.6 10 ^3/uL (0.4-5.4); Mean Corpuscular Hgb Conc. 31.8 g/dL (32.0-36.0); Nucleated Red Blood Cells % 0.1 %
[2023-03-23 17:47] LABS: Basophils % (auto) 0.2 % (0.0-2.0); Eosinophils % (auto) 0.2 % (0.0-7.0); Hematocrit 36.3 % (36.0-46.0); Hemoglobin 11.5 g/dL (12.2-16.2); Lymphocytes % (auto) 19.2 % (10.0-50.0); Mean Corpuscular Hemoglobin 26.7 pg (28.0-32.0); Mean Corpuscular Volume 84.2 fL (80.0-100.0); Monocytes # (auto) 1.1 10 ^3/uL (0-1.3); Monocytes % (auto) 13.1 % (0.0-12.0); Neutrophils # (auto) 5.5 10 ^3/uL (1.6-8.6); Neutrophils % (auto) 67.3 % (37.0-80.0); Red Blood Cells 4.31 10^6/uL (4.0-5.20); Red Cell Distribution Width 14.5 % (11.8-14.3); White Blood Cell 8.2 10^3/uL (4.4-10.8)
[2023-03-23 18:42] LABS: Magnesium 2.1 mg/dL (1.6-2.6)
[2023-03-23] MEDS: ACCU-CHEK COMFORT CURVE STRIP VI SCH ×2 (18:48→19:30)
[2023-03-23 20:20] VITALS: PULSE 100; RESP 24; O2SAT 100
[2023-03-23] MEDS ORDERED: SODIUM CHLORIDE 0.9% 1,000 ML IV SCH ×2 (20:45→22:45)
[2023-03-23 21:48] LABS: Albumin 3.1 g/dL (3.4-5.0); Calcium 7.8 mg/dL (8.5-10.1); Potassium 3.7 mmol/L (3.5-5.1)
[2023-03-23] MEDS: RIVAROXABAN 15 MG TAB PO SCH (21:50)
[2023-03-23] MEDS: DULoxetine HCL 30 MG CAP PO SCH (21:50)
[2023-03-23 21:51] LABS: BUN/Creatinine Ratio 12.9 (10.0-20.0); Bilirubin, Total 0.4 mg/dL (0.2-1.0)
[2023-03-23] MEDS: HYDROmorphone HCL 2 MG/ML VL/or syr IV PRN (21:51)
[2023-03-23] MEDS: diphenhdrAMINE HCL 50 MG/1 ML VL IV PRN (21:51)
[2023-03-23] MEDS: GABAPENTIN 300 MG CAP PO SCH (21:51)
[2023-03-24] VITALS (8 sets, daily range): BP systolic 101–153; BP diastolic 63–103; PULSE 87–130; RESP 18–22; TEMP 97.7–98.5; O2SAT 95–100
[2023-03-24] MEDS ORDERED: diphenhdrAMINE HCL 50 MG/1 ML VL IV ONE (03:00)
[2023-03-24] MEDS ORDERED: HYDROmorphone HCL 2 MG/ML VL/or syr IV ONE (03:00)
[2023-03-24] MEDS: ONDANSETRON HCL 4 MG/2 ML VIAL IV PRN ×3 (03:11→16:52)
[2023-03-24] MEDS: HYDROmorphone HCL 2 MG/ML VL/or syr IV PRN ×4 (04:36→23:01)
[2023-03-24] MEDS: GABAPENTIN 300 MG CAP PO SCH ×3 (06:00→22:00)
[2023-03-24] MEDS: diphenhdrAMINE HCL 50 MG/1 ML VL IV PRN ×3 (06:01→20:58)
[2023-03-24] MEDS ORDERED: PANTOPRAZOLE 40 MG TAB PO SCH (10:00)
[2023-03-24] MEDS: RIVAROXABAN 15 MG TAB PO SCH ×2 (10:55→22:00)
[2023-03-24] MEDS: QUEtiapine FUMARATE 100 MG TAB PO SCH (10:56)
[2023-03-24] MEDS: DULoxetine HCL 30 MG CAP PO SCH ×2 (10:57→22:00)
[2023-03-24] MEDS: INSULIN LANTUS (GLARGINE) 1 /0.01ml (100units/ml) SC SCH (11:02)
[2023-03-24 16:29] LABS: BUN/Creatinine Ratio 13.1 (10.0-20.0); Calcium 8.5 mg/dL (8.5-10.1); Potassium 3.7 mmol/L (3.5-5.1)
[2023-03-24] MEDS ORDERED: DEXTROSE (50%) 50ML SYRG IV PRN (21:30)
[2023-03-25] VITALS (7 sets, daily range): BP systolic 124–136; BP diastolic 77–132; PULSE 80–133; RESP 15–20; TEMP 98.1–98.7; O2SAT 95–100
[2023-03-25] MEDS: ONDANSETRON HCL 4 MG/2 ML VIAL IV PRN ×2 (00:05→06:57)
[2023-03-25] MEDS: HYDROmorphone HCL 2 MG/ML VL/or syr IV PRN ×4 (00:05→23:55)
[2023-03-25] MEDS: ACCU-CHEK COMFORT CURVE STRIP VI SCH ×5 (00:09→21:36)
[2023-03-25] MEDS: InsuLIN REG 1unit/0.01ml Soln (100units/ml) SC SCH ×5 (00:16→21:35)
[2023-03-25] MEDS: diphenhdrAMINE HCL 50 MG/1 ML VL IV PRN ×4 (04:46→23:54)
[2023-03-25] MEDS: GABAPENTIN 300 MG CAP PO SCH ×3 (06:00→21:36)
[2023-03-25] MEDS: INSULIN LANTUS (GLARGINE) 1 /0.01ml (100units/ml) SC SCH (10:59)
[2023-03-25] MEDS: DULoxetine HCL 30 MG CAP PO SCH ×2 (11:00→21:36)
[2023-03-25] MEDS: QUEtiapine FUMARATE 100 MG TAB PO SCH (11:00)
[2023-03-25] MEDS: RIVAROXABAN 15 MG TAB PO SCH ×2 (11:00→21:36)
[2023-03-26] VITALS (8 sets, daily range): BP systolic 117–148; BP diastolic 81–100; PULSE 101–128; RESP 19–32; TEMP 97.7–98.3; O2SAT 96–98
[2023-03-26] MEDS: GABAPENTIN 300 MG CAP PO SCH ×3 (05:04→22:25)
[2023-03-26] MEDS: ACCU-CHEK COMFORT CURVE STRIP VI SCH ×7 (06:11→23:00)
[2023-03-26] MEDS: InsuLIN REG 1unit/0.01ml Soln (100units/ml) SC SCH (06:11)
[2023-03-26] MEDS: diphenhdrAMINE HCL 50 MG/1 ML VL IV PRN ×2 (06:14→17:46)
[2023-03-26] MEDS: ONDANSETRON HCL 4 MG/2 ML VIAL IV PRN ×3 (06:21→22:00)
[2023-03-26] MEDS: HYDROmorphone HCL 2 MG/ML VL/or syr IV PRN ×2 (09:15→17:45)
[2023-03-26] MEDS: QUEtiapine FUMARATE 100 MG TAB PO SCH (09:18)
[2023-03-26] MEDS: DULoxetine HCL 30 MG CAP PO SCH ×2 (09:18→22:25)
[2023-03-26] MEDS: RIVAROXABAN 15 MG TAB PO SCH ×2 (09:19→22:25)
[2023-03-26] MEDS ORDERED: KETOROLAC TROMETH 30 MG/ML 1ML VIAL IV PRN (09:45)
[2023-03-26 10:57] LABS: Albumin 3.8 g/dL (3.4-5.0); Calcium 8.8 mg/dL (8.5-10.1)
[2023-03-26 11:01] LABS: BUN/Creatinine Ratio 19.8 (10.0-20.0); Bilirubin, Total 0.6 mg/dL (0.2-1.0); Total Protein 8.2 g/dL (6.4-8.2)
[2023-03-26 11:02] LABS: Basophils # (auto) 0 10 ^3/uL (0-0.2); Basophils % (auto) 0.2 % (0.0-2.0); Eosinophils # (auto) 0 10 ^3/uL (0-0.8)
[2023-03-26 11:03] LABS: Eosinophils % (auto) 0.3 % (0.0-7.0); Hematocrit 41.4 % (36.0-46.0); Lymphocytes # (auto) 1.9 10 ^3/uL (0.4-5.4); Lymphocytes % (auto) 23.6 % (10.0-50.0); Mean Corpuscular Hemoglobin 26.7 pg (28.0-32.0); Mean Corpuscular Hgb Conc. 33.9 g/dL (32.0-36.0); Mean Corpuscular Volume 78.6 fL (80.0-100.0); Monocytes # (auto) 0.8 10 ^3/uL (0-1.3); Monocytes % (auto) 10.2 % (0.0-12.0); Neutrophils # (auto) 5.4 10 ^3/uL (1.6-8.6); Neutrophils % (auto) 65.7 % (37.0-80.0); Nucleated Red Blood Cells % 0.1 %; Red Blood Cells 5.26 10^6/uL (4.0-5.20); Red Cell Distribution Width 14.6 % (11.8-14.3); White Blood Cell 8.1 10^3/uL (4.4-10.8)
[2023-03-26] MEDS ORDERED: SODIUM CHLORIDE 0.9% 1,000 ML IV SCH ×3 (11:15→15:45)
[2023-03-26] MEDS ORDERED: DEXTROSE (50%) 50ML SYRG IV PRN (11:45)
[2023-03-26] MEDS ORDERED: INSULIN LANTUS (GLARGINE) 1 /0.01ml (100units/ml) SC ONE (11:45)
[2023-03-26] MEDS ORDERED: POTASSIUM CHL 20MEQ/100ML 100 ML IV ONE (12:00)
[2023-03-26] MEDS: PANTOPRAZOLE 40 MG TAB PO SCH (12:57)
[2023-03-26] MEDS ORDERED: HYDROmorphone HCL 2 MG/ML VL/or syr IV ONE (13:15)
[2023-03-26] MEDS ORDERED: SODIUM CHLORIDE 0.9% 200 ML IV ONE (14:00)
[2023-03-26 15:09] LABS: Anion Gap 19 (5-15); Blood Urea Nitrogen 15 mg/dL (7-18); Calcium 8.6 mg/dL (8.5-10.1); Carbon Dioxide 15 mmol/L (21-32); Chloride 96 mmol/L (98-107); GFR African American 121 mL/min; GFR Non-African American 100 mL/min; Glucose 195 mg/dL (74-106); Sodium 130 mmol/L (136-145)
[2023-03-26] MEDS: cefTRIAXone 1GM/50ML D5W 50 ML IV SCH (16:34)
[2023-03-26] MEDS: InsuLIN R (HUMAN) 100 UNITS in SODIUM CHL 0.9% 99 ML IV SCH ×3 (17:11→22:27)
[2023-03-26 17:25] LABS: COVID19 ANTIGEN SOFIA FIA NEGATIVE (NEGATIVE)
[2023-03-26] MEDS: SODIUM CHLORIDE 0.9% 1,000 ML IV SCH (17:46)
[2023-03-26 19:32] LABS: Calcium 8.5 mg/dL (8.5-10.1); Magnesium 2.2 mg/dL (1.6-2.6)
[2023-03-26 19:34] LABS: BUN/Creatinine Ratio 19.4 (10.0-20.0); Phosphorus 2.6 mg/dL (2.5-4.90)
[2023-03-26] MEDS: POTASSIUM CHL 20MEQ/100ML 100 ML IV SCH ×2 (22:25→23:00)
[2023-03-26 23:16] LABS: Calcium 8.2 mg/dL (8.5-10.1)
[2023-03-26 23:18] LABS: BUN/Creatinine Ratio 15.9 (10.0-20.0)
[2023-03-26 23:21] LABS: Potassium 2.6 mmol/L (3.5-5.1)
[2023-03-27] VITALS (20 sets, daily range): BP systolic 121–160; BP diastolic 81–108; PULSE 90–132; RESP 10–77; TEMP 97.9–99.8; O2SAT 94–100
[2023-03-27] MEDS: SODIUM CHLORIDE 0.9% 1,000 ML IV SCH ×3 (00:25→09:47)
[2023-03-27] MEDS: InsuLIN R (HUMAN) 100 UNITS in SODIUM CHL 0.9% 99 ML IV SCH ×4 (00:27→13:13)
[2023-03-27] MEDS: diphenhdrAMINE HCL 50 MG/1 ML VL IV PRN ×2 (00:27→06:46)
[2023-03-27] MEDS: ACCU-CHEK COMFORT CURVE STRIP VI SCH ×19 (02:00→18:17)
[2023-03-27] MEDS: HYDROmorphone HCL 2 MG/ML VL/or syr IV PRN ×3 (02:13→18:17)
[2023-03-27] MEDS: D5W/SOD CHLO 0.9% 1,000 ML IV SCH ×2 (02:40→09:10)
[2023-03-27 03:40] LABS: BUN/Creatinine Ratio 19.7 (10.0-20.0); Calcium 8.2 mg/dL (8.5-10.1)
[2023-03-27 04:18] LABS: Potassium 2.9 mmol/L (3.5-5.1)
[2023-03-27 06:35] LABS: Basophils # (auto) 0 10 ^3/uL (0-0.2); Basophils % (auto) 0.3 % (0.0-2.0); Eosinophils % (auto) 0.7 % (0.0-7.0); Lymphocytes # (auto) 2.5 10 ^3/uL (0.4-5.4); Nucleated Red Blood Cells % 0.1 %
[2023-03-27 06:35] LABS: Albumin 3.1 g/dL (3.4-5.0); BUN/Creatinine Ratio 21.9 (10.0-20.0); Calcium 8.1 mg/dL (8.5-10.1)
[2023-03-27 06:38] LABS: Eosinophils # (auto) 0 10 ^3/uL (0-0.8); Hematocrit 36.1 % (36.0-46.0); Hemoglobin 12.3 g/dL (12.2-16.2); Lymphocytes % (auto) 34.3 % (10.0-50.0); Mean Corpuscular Hemoglobin 27.3 pg (28.0-32.0); Mean Corpuscular Volume 80.2 fL (80.0-100.0); Monocytes # (auto) 0.8 10 ^3/uL (0-1.3); Monocytes % (auto) 11.3 % (0.0-12.0); Neutrophils # (auto) 3.9 10 ^3/uL (1.6-8.6); Neutrophils % (auto) 53.4 % (37.0-80.0); Red Cell Distribution Width 14.4 % (11.8-14.3); White Blood Cell 7.3 10^3/uL (4.4-10.8)
[2023-03-27 06:38] LABS: Potassium 2.9 mmol/L (3.5-5.1)
[2023-03-27] MEDS: GABAPENTIN 300 MG CAP PO SCH ×3 (06:46→22:00)
[2023-03-27 07:07] LABS: Bilirubin, Total 0.4 mg/dL (0.2-1.0); Phosphorus 3.1 mg/dL (2.5-4.90); Total Protein 6.7 g/dL (6.4-8.2)
[2023-03-27] MEDS: cefTRIAXone 1GM/50ML D5W 50 ML IV SCH (08:29)
[2023-03-27] MEDS: POTASSIUM CHL 20MEQ/100ML 100 ML IV SCH ×3 (08:30→11:00)
[2023-03-27] MEDS: ONDANSETRON HCL 4 MG/2 ML VIAL IV PRN ×2 (08:51→18:33)
[2023-03-27 09:19] LABS: Base Excess -1.7 mmol/L (-2.0-2.0)
[2023-03-27] MEDS: DULoxetine HCL 30 MG CAP PO SCH ×2 (09:45→22:00)
[2023-03-27] MEDS: PANTOPRAZOLE 40 MG TAB PO SCH (09:46)
[2023-03-27] MEDS: QUEtiapine FUMARATE 100 MG TAB PO SCH (09:46)
[2023-03-27] MEDS: RIVAROXABAN 15 MG TAB PO SCH (09:47)
[2023-03-27] MEDS ORDERED: INSULIN LANTUS (GLARGINE) 1 /0.01ml (100units/ml) SC SCH (10:00)
[2023-03-27] MEDS ORDERED: METOCLOPRAMIDE HCL 5MG/ml INJ 2ml VIAL IV ONE (11:00)
[2023-03-27] MEDS ORDERED: diphenhdrAMINE HCL 50 MG/1 ML VL IV PRN (11:00)
[2023-03-27] MEDS ORDERED: HYDROmorphone HCL 2 MG/ML VL/or syr IV PRN (11:15)
[2023-03-27] MEDS ORDERED: LORazepam 2MG/ML-1ML VIAL IV ONE (11:15)
[2023-03-27] MEDS ORDERED: FLUCONAZOLE 200MG/100ML 100 ML IV ONE (12:30)
[2023-03-27] MEDS ORDERED: PANTOPRAZOLE 40 MG/10 ML VIAL INJ IV ONE (12:30)
[2023-03-27] MEDS ORDERED: D5W/SOD CHLO 0.9% 1,000 ML IV SCH (13:30)
[2023-03-27] MEDS ORDERED: diphenhdrAMINE HCL 50 MG/1 ML VL IV ONE (16:30)
[2023-03-27 16:35] LABS: BUN/Creatinine Ratio 11.9 (10.0-20.0); Calcium 8.4 mg/dL (8.5-10.1); Phosphorus 2.4 mg/dL (2.5-4.90); Potassium 3.4 mmol/L (3.5-5.1)
[2023-03-27] MEDS ORDERED: INSULIN LANTUS (GLARGINE) 1 /0.01ml (100units/ml) SC ONE (17:45)
[2023-03-27] MEDS ORDERED: DEXTROSE (50%) 50ML SYRG IV PRN (17:45)
[2023-03-27] MEDS ORDERED: POTASSIUM CHL 20MEQ/100ML 100 ML IV ONE (19:00)
[2023-03-28] VITALS (13 sets, daily range): BP systolic 115–152; BP diastolic 75–98; PULSE 98–127; RESP 13–70; TEMP 97.6–99.1; O2SAT 16–100
[2023-03-28] MEDS ORDERED: InsuLIN REG 1unit/0.01ml Soln (100units/ml) SC SCH
[2023-03-28] MEDS: diphenhdrAMINE HCL 50 MG/1 ML VL IV PRN ×4 (00:18→20:41)
[2023-03-28] MEDS: HYDROmorphone HCL 2 MG/ML VL/or syr IV PRN ×4 (00:25→20:40)
[2023-03-28] MEDS: ONDANSETRON HCL 4 MG/2 ML VIAL IV PRN ×3 (00:32→12:30)
[2023-03-28] MEDS: ACCU-CHEK COMFORT CURVE STRIP VI SCH ×4 (00:35→18:05)
[2023-03-28] MEDS: InsuLIN REG 1unit/0.01ml Soln (100units/ml) SC SCH ×4 (00:36→18:06)
[2023-03-28 00:47] LABS: Urine Bacteria FEW /hpf (None Seen); Urine Blood Negative /uL (Negative); Urine Budding Yeast OCCASIONAL /hpf (None Seen); Urine Clarity HAZY (Clear); Urine Color Yellow (Yellow); Urine Mucus FEW (None Seen); Urine Protein, UAD Negative (Negative); Urine Urobilinogen Normal (Negative); Urine WBC 32 /hpf (0 - 5); Urine WBC Clumps PRESENT /hpf (None Seen)
[2023-03-28 00:59] LABS: Alcohol, Urine < 3.0 mg/dL (0-10); Barbiturate Scree,Urine NEGATIVE (NEGATIVE); Cannabinoid Screen, Urine POSITIVE (NEGATIVE)
[2023-03-28 01:06] LABS: Amphetamine Screen, Urine NEGATIVE (NEGATIVE); Benzodiazephine Screen, Urine NEGATIVE (NEGATIVE); Cocaine Screen, Urine NEGATIVE (NEGATIVE); Opiate Scree,Urine NEGATIVE (NEGATIVE); Phencyclidine Screen, Urine NEGATIVE (NEGATIVE)
[2023-03-28] MEDS: GABAPENTIN 300 MG CAP PO SCH ×3 (06:00→22:07)
[2023-03-28] MEDS ORDERED: INSULIN LANTUS (GLARGINE) 1 /0.01ml (100units/ml) SC SCH ×2 (07:00→10:00)
[2023-03-28 07:04] LABS: Basophils # (auto) 0 10 ^3/uL (0-0.2); Basophils % (auto) 0.3 % (0.0-2.0); Eosinophils # (auto) 0 10 ^3/uL (0-0.8); Eosinophils % (auto) 0.5 % (0.0-7.0); Hemoglobin 12.7 g/dL (12.2-16.2); Lymphocytes # (auto) 2.3 10 ^3/uL (0.4-5.4); Lymphocytes % (auto) 26.8 % (10.0-50.0); Mean Corpuscular Hemoglobin 27.1 pg (28.0-32.0); Mean Corpuscular Hgb Conc. 34.3 g/dL (32.0-36.0); Mean Corpuscular Volume 79.1 fL (80.0-100.0); Monocytes # (auto) 0.7 10 ^3/uL (0-1.3); Monocytes % (auto) 8.6 % (0.0-12.0); Neutrophils # (auto) 5.5 10 ^3/uL (1.6-8.6); Neutrophils % (auto) 63.8 % (37.0-80.0); Red Blood Cells 4.68 10^6/uL (4.0-5.20); Red Cell Distribution Width 14.7 % (11.8-14.3); White Blood Cell 8.6 10^3/uL (4.4-10.8)
[2023-03-28 08:55] LABS: INR 1.05 (0.9-1.15); Partial Thromboplastin Time 23.6 SEC (24.5-34.5)
[2023-03-28] MEDS: cefTRIAXone 1GM/50ML D5W 50 ML IV SCH (09:00)
[2023-03-28] MEDS ORDERED: ceFAZolin 1GM/50ML 100 ML IV ONE (09:19)
[2023-03-28] MEDS: POTASSIUM CHL 10 Meq TABLET PO SCH (10:00)
[2023-03-28] MEDS: DULoxetine HCL 30 MG CAP PO SCH (10:00)
[2023-03-28] MEDS: QUEtiapine FUMARATE 100 MG TAB PO SCH (10:00)
[2023-03-28] MEDS ORDERED: FLUCONAZOLE 200MG/100ML 100 ML IV SCH (10:00)
[2023-03-28] MEDS: ENOXAPARIN SOD 40 MG/0.4 ML SYRINGE SC SCH (10:08)
[2023-03-28] MEDS: PANTOPRAZOLE 40 MG/10 ML VIAL INJ IV SCH (10:08)
[2023-03-28] MEDS: INSULIN LANTUS (GLARGINE) 1 /0.01ml (100units/ml) SC SCH (10:17)
[2023-03-28 12:03] LABS: Base Excess -0.9 mmol/L (-2.0-2.0)
[2023-03-28 14:58] LABS: Albumin 3.2 g/dL (3.4-5.0); Calcium 8.4 mg/dL (8.5-10.1); Magnesium 1.9 mg/dL (1.6-2.6)
[2023-03-28 15:01] LABS: BUN/Creatinine Ratio 7.7 (10.0-20.0); Bilirubin, Total 0.4 mg/dL (0.2-1.0); Total Protein 6.9 g/dL (6.4-8.2)
[2023-03-28 15:07] LABS: Potassium 2.9 mmol/L (3.5-5.1)
[2023-03-28] MEDS ORDERED: POTASSIUM EFFERVESENT TAB 25 MEQ GT ONE (15:15)
[2023-03-28] MEDS ORDERED: VANCOMYCIN PER PHARMACY 0 MG IV SCH (15:45)
[2023-03-28] MEDS ORDERED: FLUCONAZOLE 200MG/100ML 100 ML IV ONE (15:45)
[2023-03-28] MEDS ORDERED: VANCOMYCIN 1GM/250ML 250 ML IV ONE (16:00)
[2023-03-28] MEDS: MIRTAZAPINE 30 MG TAB PO SCH (22:07)
[2023-03-29] VITALS (7 sets, daily range): BP systolic 115–126; BP diastolic 57–73; PULSE 90–113; RESP 14–20; TEMP 97.6–98.6; O2SAT 94–99
[2023-03-29] MEDS: VANCOMYCIN 1GM/250ML 250 ML IV SCH ×3 (00:17→17:41)
[2023-03-29] MEDS: ACCU-CHEK COMFORT CURVE STRIP VI SCH ×4 (00:17→17:46)
[2023-03-29] MEDS: InsuLIN REG 1unit/0.01ml Soln (100units/ml) SC SCH ×4 (00:23→17:46)
[2023-03-29] MEDS: diphenhdrAMINE HCL 50 MG/1 ML VL IV PRN ×3 (04:38→21:45)
[2023-03-29] MEDS: HYDROmorphone HCL 2 MG/ML VL/or syr IV PRN ×3 (04:40→21:46)
[2023-03-29] MEDS: ONDANSETRON HCL 4 MG/2 ML VIAL IV PRN ×2 (05:40→18:43)
[2023-03-29] MEDS: GABAPENTIN 300 MG CAP PO SCH ×3 (05:40→22:00)
[2023-03-29] MEDS ORDERED: ceFAZolin 1GM/50ML 100 ML IV ONE (07:03)
[2023-03-29] MEDS ORDERED: POTASSIUM CHL 20MEQ/100ML 100 ML IV ONE ×2 (07:22→11:45)
[2023-03-29] MEDS ORDERED: ceFAZolin 1GM/50ML 50 ML IV ONE (07:35)
[2023-03-29] MEDS ORDERED: fentaNYL CITRATE 100 MCG/2 ML VL ONE (07:36)
[2023-03-29] MEDS ORDERED: MEPERIDINE HCL (25 MG/ML) 1ML VIAL ONE (07:36)
[2023-03-29] MEDS ORDERED: MIDAZOLAM HCL 2MG/2ML 2ml VIAL (1mg/ml) ONE (07:36)
[2023-03-29] MEDS: BUPIVACAINE W/ EPINEPH 0.5% INJ 50ML MDV IJ ONE ×2 (07:53→10:26)
[2023-03-29] MEDS: LIDOCAINE 1% HCL (LOCAL ANESTH.) INJ 20ML MDV ONE ×2 (07:53→10:26)
[2023-03-29] MEDS ORDERED: MORPHINE SULFATE 4 MG/ML SYR/VIAL IV PRN (08:30)
[2023-03-29] MEDS ORDERED: ONDANSETRON HCL 4 MG/2 ML VIAL IV PRN (08:30)
[2023-03-29] MEDS ORDERED: ePHEDrine SULFATE 50 MG/ML AMP IV PRN (08:30)
[2023-03-29] MEDS ORDERED: MIDAZOLAM HCL 2MG/2ML 2ml VIAL (1mg/ml) IV PRN (08:30)
[2023-03-29] MEDS ORDERED: HYDROmorphone HCL 2 MG/ML VL/or syr IV PRN (08:30)
[2023-03-29] MEDS ORDERED: LABETALOL HCL 5 MG/ML 4ML SYRINGE IV PRN (08:30)
[2023-03-29] MEDS ORDERED: ACCU-CHEK COMFORT CURVE STRIP VI ONE (08:30)
[2023-03-29] MEDS ORDERED: PROPOFOL 10 MG/ML 20 ML IV ONE (08:49)
[2023-03-29] MEDS ORDERED: DexAMETHasone SOD PHOS 10MG/1ML VIAL INJ ONE (08:49)
[2023-03-29] MEDS: ENOXAPARIN SOD 40 MG/0.4 ML SYRINGE SC SCH (10:00)
[2023-03-29] MEDS: PANTOPRAZOLE 40 MG/10 ML VIAL INJ IV SCH (10:00)
[2023-03-29] MEDS: QUEtiapine FUMARATE 100 MG TAB PO SCH (10:00)
[2023-03-29] MEDS: POTASSIUM CHL 10 Meq TABLET PO SCH (10:00)
[2023-03-29 10:55] LABS: Potassium 3.2 mmol/L (3.5-5.1)
[2023-03-29] MEDS: FLUCONAZOLE 200MG/100ML 100 ML IV SCH ×2 (10:58→12:09)
[2023-03-29 11:04] LABS: BUN/Creatinine Ratio 8.3 (10.0-20.0); Bilirubin, Total 0.3 mg/dL (0.2-1.0); Calcium 8.3 mg/dL (8.5-10.1); Total Protein 6.6 g/dL (6.4-8.2)
[2023-03-29] MEDS: INSULIN LANTUS (GLARGINE) 1 /0.01ml (100units/ml) SC SCH (11:24)
[2023-03-29 12:09] LABS: Basophils # (auto) 0 10 ^3/uL (0-0.2); Basophils % (auto) 0.2 % (0.0-2.0); Eosinophils # (auto) 0.1 10 ^3/uL (0-0.8); Eosinophils % (auto) 0.8 % (0.0-7.0); Hematocrit 37.4 % (36.0-46.0); Hemoglobin 12.4 g/dL (12.2-16.2); Lymphocytes # (auto) 2.2 10 ^3/uL (0.4-5.4); Lymphocytes % (auto) 30.8 % (10.0-50.0); Mean Corpuscular Hemoglobin 26.4 pg (28.0-32.0); Mean Corpuscular Hgb Conc. 33.1 g/dL (32.0-36.0); Mean Corpuscular Volume 79.9 fL (80.0-100.0); Monocytes # (auto) 0.7 10 ^3/uL (0-1.3); Monocytes % (auto) 9.8 % (0.0-12.0); Neutrophils # (auto) 4.2 10 ^3/uL (1.6-8.6); Neutrophils % (auto) 58.4 % (37.0-80.0); Nucleated Red Blood Cells % 0.1 %; Red Blood Cells 4.69 10^6/uL (4.0-5.20); Red Cell Distribution Width 14.7 % (11.8-14.3); White Blood Cell 7.2 10^3/uL (4.4-10.8)
[2023-03-29] MEDS: METOCLOPRAMIDE HCL 5MG/ml INJ 2ml VIAL IV PRN (13:28)
[2023-03-29] MEDS ORDERED: KETOROLAC TROMETH 30 MG/ML 1ML VIAL IV ONE (18:30)
[2023-03-29] MEDS: MIRTAZAPINE 30 MG TAB PO SCH (22:00)
[2023-03-30] MEDS: ACCU-CHEK COMFORT CURVE STRIP VI SCH ×4 (00:35→16:59)
[2023-03-30 01:44] LABS: Basophils # (auto) 0 10 ^3/uL (0-0.2); Basophils % (auto) 0.4 % (0.0-2.0); Eosinophils # (auto) 0.1 10 ^3/uL (0-0.8); Eosinophils % (auto) 1.5 % (0.0-7.0); Hematocrit 37.2 % (36.0-46.0); Hemoglobin 12.4 g/dL (12.2-16.2); Lymphocytes # (auto) 2.6 10 ^3/uL (0.4-5.4); Lymphocytes % (auto) 40.4 % (10.0-50.0); Mean Corpuscular Hemoglobin 27.3 pg (28.0-32.0); Mean Corpuscular Hgb Conc. 33.2 g/dL (32.0-36.0); Mean Corpuscular Volume 82.2 fL (80.0-100.0); Monocytes # (auto) 0.6 10 ^3/uL (0-1.3); Monocytes % (auto) 9.6 % (0.0-12.0); Neutrophils # (auto) 3.1 10 ^3/uL (1.6-8.6); Neutrophils % (auto) 48.1 % (37.0-80.0); Red Blood Cells 4.52 10^6/uL (4.0-5.20); Red Cell Distribution Width 14.8 % (11.8-14.3); White Blood Cell 6.5 10^3/uL (4.4-10.8)
[2023-03-30 02:31] LABS: Albumin 3.3 g/dL (3.4-5.0); Calcium 8.7 mg/dL (8.5-10.1); Potassium 3.1 mmol/L (3.5-5.1)
[2023-03-30 02:34] LABS: Bilirubin, Total 0.4 mg/dL (0.2-1.0)
[2023-03-30] MEDS: VANCOMYCIN 1GM/250ML 250 ML IV SCH ×3 (02:40→18:30)
[2023-03-30 04:56] VITALS: BP 110/72; PULSE 89; TEMP 99.4; O2SAT 16
[2023-03-30] MEDS: InsuLIN REG 1unit/0.01ml Soln (100units/ml) SC SCH ×4 (06:00→17:00)
[2023-03-30] MEDS: GABAPENTIN 300 MG CAP PO SCH ×2 (06:00→14:32)
[2023-03-30] MEDS: METOCLOPRAMIDE HCL 5MG/ml INJ 2ml VIAL IV PRN ×2 (06:06→15:57)
[2023-03-30] MEDS: diphenhdrAMINE HCL 50 MG/1 ML VL IV PRN ×2 (06:07→16:02)
[2023-03-30] MEDS: HYDROmorphone HCL 2 MG/ML VL/or syr IV PRN ×2 (06:07→16:02)
[2023-03-30] MEDS ORDERED: POTASSIUM CHL 20MEQ/100ML 100 ML IV ONE (07:15)
[2023-03-30 08:00] VITALS: PULSE 107
[2023-03-30 09:01] VITALS: BP 167/79; PULSE 125; RESP 20; TEMP 98.6; O2SAT 94
[2023-03-30] MEDS: PANTOPRAZOLE 40 MG/10 ML VIAL INJ IV SCH (09:14)
[2023-03-30] MEDS: FLUCONAZOLE 200MG/100ML 100 ML IV SCH ×2 (09:14→11:55)
[2023-03-30] MEDS: QUEtiapine FUMARATE 100 MG TAB PO SCH (09:16)
[2023-03-30] MEDS: ENOXAPARIN SOD 40 MG/0.4 ML SYRINGE SC SCH (09:16)
[2023-03-30] MEDS: POTASSIUM CHL 10 Meq TABLET PO SCH (09:16)
[2023-03-30] MEDS ORDERED: HYDROmorphone HCL 2 MG/ML VL/or syr IV ONE (10:30)
[2023-03-30] MEDS: INSULIN LANTUS (GLARGINE) 1 /0.01ml (100units/ml) SC SCH (11:04)
[2023-03-30 13:05] VITALS: BP 127/85; PULSE 95; RESP 20; TEMP 98.9; O2SAT 96
[2023-03-30 17:04] VITALS: BP 121/79; PULSE 122; RESP 20; TEMP 98.9; O2SAT 99
[2023-03-30 17:57] VITALS: BP 121/79; PULSE 122; RESP 20
== END 2023-03-30 19:32 | disposition short-term general hospital (02) | DRG 721 ==
LOC: ER 10:59 → EDBD 10:59 → TELE 19:39 → TELE-EAST 03-24 03:17 → DOU IN ICU 03-26 15:08 → TELE-WESTW 03-28 18:23
PROVIDERS: ADMIT Internal Medicine Pulmonary Disease; ATTEND Internal Medicine
PROC: 0JPT0WZ Removal of Totally Implantable Vascular Access Device from Trunk Subcutaneous Tissue and Fascia, Open Approach (ICD-10-PCS; principal; 2023-03-29 07:36)
DX: T80.212A Local infection due to central venous catheter, initial encounter (principal); E10.10 Type 1 diabetes mellitus with ketoacidosis without coma; B49 Unspecified mycosis; R78.81 Bacteremia; F33.1 Major depressive disorder, recurrent, moderate; E87.6 Hypokalemia; Z20.822 Contact with and (suspected) exposure to COVID-19; F41.9 Anxiety disorder, unspecified; Y84.8 Other medical procedures as the cause of abnormal reaction of the patient, or of later complication, without mention of misadventure at the time of the procedure; Z91.199 Patient's noncompliance with other medical treatment and regimen due to unspecified reason; Z95.0 Presence of cardiac pacemaker; Z83.3 Family history of diabetes mellitus; Z86.718 Personal history of other venous thrombosis and embolism; Y92.89 Other specified places as the place of occurrence of the external cause
CPT/HCPCS: 36415; 36600; 71045; 74176; 76705; 80048; 80053; 80061; 80076; 80202; 80307; 81001; 82010; 82306; 82607; 82805; 82962; 83690; 83735; 83930; 84100; 84443; 84702; 85025; 85610; 85730; 87040; 87075; 87077; 87081; 87086; 87186; 87205; 87426; C9113; G0378; J0690; J0696; J1100; J1450; J1815; J1885; J2001; J2250; J2405; J2704; J3480